=== PATIENT | male | born 1960 | race Caucasian/White ===

== ENCOUNTER 2020-07-15 18:45 | Emergency (ER) | payer OTHER ==
[~2020-07-15] VITALS: Ht 182.9 cm; Wt 83.9 kg
[2020-07-15] MEDS ORDERED: CIPRO500 MG PO (19:12)
[2020-07-15 19:58] VITALS: BP 122/68
== END 2020-07-15 19:58 | disposition home or self-care (01) ==
LOC: M.ERS 18:45
DX: S91.332A Puncture wound without foreign body, left foot, initial encounter (principal); L08.9 Local infection of the skin and subcutaneous tissue, unspecified; W22.8XXA Striking against or struck by other objects, initial encounter; Y93.89 Activity, other specified; Y92.89 Other specified places as the place of occurrence of the external cause; Y99.8 Other external cause status